=== PATIENT | female | born 1970 | race Caucasian/White ===

== ENCOUNTER → 2018-04-16 | Outpatient (CLI) | payer OTHER ==
[2018-04-16 12:35] LABS: HCT 41.9 % (34.0-46.0); MCH 31.3 pg (25.0-35.0); MCHC 33.5 g/dL (31.0-37.0); MCV 93.6 fL (80.0-100.0); Mean Platelet Volume 6.7; Platelet Count 255 k/uL (150-450); RBC 4.48 m/uL (3.80-5.40); RDW 12.9 % (11.5-15.5); WBC 5.4 k/uL (3.8-10.6)
[2018-04-16 12:44] LABS: Partial Thromboplastin Time 25.7 sec (22.0-30.0); Prothrombin Time 10.3 sec (9.0-12.0)
[2018-04-16 16:16] LABS: Albumin 4.6 g/dL (3.80-4.90); Albumin/Globulin Ratio 2.3 (1.20-2.10); Anion Gap 6.2 mmol/L (4.00-12.00); Calcium 9.3 mg/dL (8.7-10.3); Carbon Dioxide 27.8 mmol/L (21.6-31.8); Potassium 4.5 mmol/L (3.5-5.5); Total Bilirubin 0.7 mg/dL (0.2-1.2); Total Protein 6.6 g/dL (6.2-8.2)
== END ==
LOC: LABWHC1 11:52
PROVIDERS: ATTEND Plastic Surgery
DX: D64.9 Anemia, unspecified (principal); D68.9 Coagulation defect, unspecified; E87.8 Other disorders of electrolyte and fluid balance, not elsewhere classified
CPT/HCPCS: 36415; 80053; 85027; 85610; 85730

== ENCOUNTER → 2020-04-03 | Outpatient (CLI) | payer BC, OTHER | END | disposition home or self-care (01) | LOC: LABWHC1 14:33 | PROVIDERS: ATTEND Family Medicine | DX: Z20.828 Contact with and (suspected) exposure to other viral communicable diseases (principal) | CPT/HCPCS: U0003; C9803 ==